=== PATIENT | female | born 1955 | race African-American/Black ===

== ENCOUNTER 2019-05-22 11:57 | Inpatient (IN) ==
[2019-05-22] MEDS ORDERED: ONDANSETRON 4 MG/2 ML VIAL IV STA (12:14)
[2019-05-22] MEDS ORDERED: SODIUM CHLORIDE 0.9% 1,000 ML IV STA (12:14)
[2019-05-22] MEDS ORDERED: ACETAMINOPHEN 500 MG TABLET PO STA (12:17)
[2019-05-22 12:35] LABS: Basophils # 0.1 10*3/uL (0.0-0.2); Basophils % 0.4 % (0.0-0.8); Hematocrit 38.5 VOL% (35.7-47.0); Hemoglobin 12.6 GM/DL (12.0-16.0); Immature Granulocytes % 2.4 %; Immature Granulocytes Absolute 0.42 #; Lymphocytes # 2.6 10*3/uL (1.4-4.0); Lymphocytes % 14.4 % (21.3-54.2); Mean Corpuscular HGB Conc 32.7 GM/DL (32-36); Mean Corpuscular Volume 88.5 FL (87-102); Mean Platelet Volume 9.8 FL (9.6-12.0); Monocytes % 15.8 % (1.7-12.7); Platelet Count 252 T/CUMM (130-400); Red Blood Count 4.35 MC/CUMM (3.8-5.5); White Blood Count 17.9 T/CUMM (4-12)
[2019-05-22 12:42] LABS: Apearance,Urine CLEAR (Clear); Bilirubin,Urine Negative (Negative); Blood, Urine Small mg/dL (Negative); Glucose,Urine (UA) Negative (Negative); Ketones,Urine Negative (Negative); Mucus,Urine Occasional /LPF (Occasional); Nitrite,Urine Negative (Negative); Protein,Urine Negative; RBC,Urine 2 /HPF (0-4); Squamous Epithelial Cell,Urine Occasional /HPF (0-10); Urine Color Yellow (Yellow); Urine Specific Gravity 1.019 (1.001-1.035); WBC,Urine <1 /HPF (0-6)
[2019-05-22 12:55] LABS: Albumin 3.1 G/DL (3.4-5.0); Bilirubin,Total 0.8 MG/DL (0.2-1.0); Calcium 9.7 MG/DL (8.5-10.1); Osmolality,Calculated 273.1 MOS/KG (273-304); Total Protein 8.6 G/DL (6.4-8.3)
[2019-05-22 13:27] LABS: Band Neutrophils 1 % (0-10); Lymphocytes 13 % (20-55); Segmented Neutrophils 72 % (50-85); Total Cells Counted 100
[2019-05-22 13:28] LABS: Anisocytosis Slight; Microcytosis Slight
[2019-05-22 13:29] LABS: Atypical Lymphocytes Few; Platelet Estimate Normal
[2019-05-22] MEDS ORDERED: cefTRIAXone 1,000 MG in SODIUM CHLORIDE 0.9% 100 ML IV STA (13:32)
[2019-05-22] MEDS ORDERED: NICOTINE 21 MG/24 HR PATCH TRANSDERM PRN (14:35)
[2019-05-22] MEDS ORDERED: ONDANSETRON 4 MG/2 ML VIAL IV PRN (14:35)
[2019-05-22] MEDS ORDERED: PNEUMOCOCCAL VACCINE (13 VALENT) 0.5 ML SYRINGE IM ONE (15:55)
[2019-05-22] MEDS: LEVOFLOXACIN INJ 750 MG in PREMIX 1 EACH IV SCH (15:58)
[2019-05-22] MEDS: SODIUM CHLORIDE 0.9% 1,000 ML IV SCH (15:58)
[2019-05-22] MEDS: POTASSIUM CHLORIDE 20 MEQ TABLET PO PRN ×3 (15:58→22:12)
[2019-05-22] MEDS: VANCOMYCIN INJ 1,000 MG in SODIUM CHLORIDE 0.9% 250 ML IV SCH (17:57)
[2019-05-22] MEDS: ACETAMINOPHEN 325 MG TABLET PO PRN (20:41)
[2019-05-23] MEDS: POTASSIUM CHLORIDE 20 MEQ TABLET PO PRN (00:48)
[2019-05-23] MEDS: SODIUM CHLORIDE 0.9% 1,000 ML IV SCH ×3 (03:27→23:00)
[2019-05-23] MEDS: VANCOMYCIN INJ 1,000 MG in SODIUM CHLORIDE 0.9% 250 ML IV SCH ×2 (05:17→18:27)
[2019-05-23 05:46] LABS: Basophils % 0.3 % (0.0-0.8); Eosinophils % 0.1 % (0.00-10.9); Hematocrit 33.6 VOL% (35.7-47.0); Hemoglobin 10.8 GM/DL (12.0-16.0); Immature Granulocytes % 3.7 %; Immature Granulocytes Absolute 0.59 #; Lymphocytes # 2.5 10*3/uL (1.4-4.0); Lymphocytes % 15.4 % (21.3-54.2); Mean Corpuscular HGB Conc 32.1 GM/DL (32-36); Mean Corpuscular Volume 91.1 FL (87-102); Monocytes % 12.9 % (1.7-12.7); Neutrophils % 67.6 % (38.7-73.9); Platelet Count 229 T/CUMM (130-400); Red Blood Count 3.69 MC/CUMM (3.8-5.5); Red Cell Distribution Width 14.4 % (9.3-17.3)
[2019-05-23 06:10] LABS: Band Neutrophils 2 % (0-10); Calcium 8.3 MG/DL (8.5-10.1); Lymphocytes 15 % (20-55); Osmolality,Calculated 280.3 MOS/KG (273-304); Platelet Estimate Normal; Segmented Neutrophils 70 % (50-85); Thyroid Stimulating Hormone 0.797 uIU/ml (0.358-3.74); Total Cells Counted 100
[2019-05-23] MEDS: ACETAMINOPHEN 325 MG TABLET PO PRN ×2 (07:28→18:30)
[2019-05-23] MEDS: PANTOPRAZOLE 40 MG TABLET PO SCH (09:32)
[2019-05-23] MEDS: LEVOFLOXACIN INJ 750 MG in PREMIX 1 EACH IV SCH (15:21)
[2019-05-23] MEDS: ALBUTEROL/IPRATROPIUM 3 ML NEB RESP TX PRN (19:14)
[2019-05-24] MEDS: ACETAMINOPHEN 325 MG TABLET PO PRN ×2 (01:13→18:23)
[2019-05-24 05:21] LABS: Basophils % 0.2 % (0.0-0.8); Eosinophils # 0.1 10*3/uL (0.0-0.87); Eosinophils % 0.4 % (0.00-10.9); Hematocrit 32.2 VOL% (35.7-47.0); Hemoglobin 10.2 GM/DL (12.0-16.0); Immature Granulocytes Absolute 0.27 #; Lymphocytes # 2.8 10*3/uL (1.4-4.0); Lymphocytes % 20.7 % (21.3-54.2); Mean Corpuscular HGB Conc 31.7 GM/DL (32-36); Mean Corpuscular Volume 91.5 FL (87-102); Mean Platelet Volume 10.2 FL (9.6-12.0); Monocytes % 10.5 % (1.7-12.7); Neutrophils % 66.2 % (38.7-73.9); Platelet Count 267 T/CUMM (130-400); Red Blood Count 3.52 MC/CUMM (3.8-5.5); Red Cell Distribution Width 14.4 % (9.3-17.3); White Blood Count 13.5 T/CUMM (4-12)
[2019-05-24 05:53] LABS: Calcium 8.5 MG/DL (8.5-10.1); Osmolality,Calculated 280.1 MOS/KG (273-304)
[2019-05-24] MEDS: VANCOMYCIN INJ 1,000 MG in SODIUM CHLORIDE 0.9% 250 ML IV SCH (06:10)
[2019-05-24] MEDS: ALBUTEROL/IPRATROPIUM 3 ML NEB RESP TX PRN (07:58)
[2019-05-24] MEDS: PANTOPRAZOLE 40 MG TABLET PO SCH (09:22)
[2019-05-24] MEDS: SODIUM CHLORIDE 0.9% 1,000 ML IV SCH ×2 (09:22→20:47)
[2019-05-24] MEDS: POTASSIUM CHLORIDE 20 MEQ TABLET PO PRN ×5 (09:22→23:11)
[2019-05-24] MEDS: ALBUTEROL/IPRATROPIUM 3 ML NEB RESP TX SCH ×4 (10:40→23:16)
[2019-05-24] MEDS: LEVOFLOXACIN INJ 750 MG in PREMIX 1 EACH IV SCH (16:10)
[2019-05-25] MEDS: POTASSIUM CHLORIDE 20 MEQ TABLET PO PRN ×3 (00:59→04:59)
[2019-05-25] MEDS: ALBUTEROL/IPRATROPIUM 3 ML NEB RESP TX SCH ×6 (03:49→23:20)
[2019-05-25 04:53] LABS: Basophils % 0.3 % (0.0-0.8); Eosinophils % 0.2 % (0.00-10.9); Hematocrit 34.2 VOL% (35.7-47.0); Hemoglobin 10.9 GM/DL (12.0-16.0); Immature Granulocytes % 1.5 %; Immature Granulocytes Absolute 0.19 #; Lymphocytes # 2.3 10*3/uL (1.4-4.0); Lymphocytes % 17.9 % (21.3-54.2); Mean Corpuscular HGB Conc 31.9 GM/DL (32-36); Mean Corpuscular Volume 90.5 FL (87-102); Mean Platelet Volume 9.6 FL (9.6-12.0); Monocytes % 8.2 % (1.7-12.7); Neutrophils % 71.9 % (38.7-73.9); Platelet Count 321 T/CUMM (130-400); Red Blood Count 3.78 MC/CUMM (3.8-5.5); Red Cell Distribution Width 14.3 % (9.3-17.3); White Blood Count 12.9 T/CUMM (4-12)
[2019-05-25 05:21] LABS: Calcium 8.9 MG/DL (8.5-10.1); Osmolality,Calculated 275.5 MOS/KG (273-304)
[2019-05-25] MEDS: SODIUM CHLORIDE 0.9% 1,000 ML IV SCH ×4 (05:40→21:31)
[2019-05-25] MEDS: PANTOPRAZOLE 40 MG TABLET PO SCH (09:08)
[2019-05-25 10:37] LABS: PT Patient Result 11.1 SECS
[2019-05-25] MEDS ORDERED: DIAZEPAM 5 MG TABLET PO ONE (12:30)
[2019-05-25] MEDS: LEVOFLOXACIN INJ 750 MG in PREMIX 1 EACH IV SCH (16:28)
[2019-05-25] MEDS: CARVEDILOL 6.25 MG TABLET PO SCH (17:40)
[2019-05-25] MEDS: ACETAMINOPHEN 325 MG TABLET PO PRN (19:00)
[2019-05-26] MEDS: ALBUTEROL/IPRATROPIUM 3 ML NEB RESP TX SCH ×3 (03:00→11:36)
[2019-05-26] MEDS: SODIUM CHLORIDE 0.9% 1,000 ML IV SCH (05:48)
[2019-05-26 07:37] LABS: Basophils # 0.1 10*3/uL (0.0-0.2); Basophils % 0.4 % (0.0-0.8); Eosinophils % 0.2 % (0.00-10.9); Hemoglobin 11.9 GM/DL (12.0-16.0); Immature Granulocytes % 1.3 %; Lymphocytes # 2.7 10*3/uL (1.4-4.0); Lymphocytes % 18.1 % (21.3-54.2); Mean Corpuscular HGB Conc 32.2 GM/DL (32-36); Mean Corpuscular Volume 89.2 FL (87-102); Mean Platelet Volume 9.2 FL (9.6-12.0); Monocytes % 6.5 % (1.7-12.7); Neutrophils % 73.5 % (38.7-73.9); Platelet Count 362 T/CUMM (130-400); Red Blood Count 4.15 MC/CUMM (3.8-5.5); Red Cell Distribution Width 14.3 % (9.3-17.3)
[2019-05-26 08:02] LABS: Calcium 8.9 MG/DL (8.5-10.1); Osmolality,Calculated 277.4 MOS/KG (273-304)
[2019-05-26] MEDS: CARVEDILOL 6.25 MG TABLET PO SCH (09:44)
[2019-05-26] MEDS: PANTOPRAZOLE 40 MG TABLET PO SCH (09:44)
[2019-05-26] MEDS ORDERED: MAGNESIUM SULF RIDER 2 GM in PREMIX 1 EACH IV ONE (10:27)
[2019-05-26 12:03] VITALS: BP 133/82
== END 2019-05-26 13:41 | disposition home or self-care (01) | DRG 194 ==
LOC: N.ED 11:57 → N.2E 14:35 → SUATTDRO 14:38 → N.2E 15:25
PROVIDERS: ADMIT Internal Medicine; ATTEND Internal Medicine